=== PATIENT | male | born 1975 | race Caucasian/White ===

== ENCOUNTER 2023-07-08 15:42 | Emergency (ER) | payer MEDICAID ==
[~2023-07-08] VITALS: Ht 167.6 cm; Wt 82.0 kg
[2023-07-08 15:57] VITALS: O2SAT 98
[2023-07-08 16:34] LABS: EOSINOPHILS % 12.4 % (0.0-5.0); HEMATOCRIT. 41.7 % (42.0-52.0); HEMOGLOBIN. 14.6 g/dL (14.0-18.0); LYMPHOCYTES % 30.9 % (20.0-50.0); MEAN CORPUSCULAR HEMOGLOBIN 29.5 pg (28.0-32.0); MEAN CORPUSCULAR HGB CONC 35.1 g/dL (31.0-37.0); MEAN PLATELET VOLUME 8.7 fl (7.4-10.4); MONOCYTES % 10.2 % (2.0-8.0); NEUTROPHILS % 45.5 % (40.0-76.0); PLATELET 243 x1000/uL (130-400); RED BLOOD CELL COUNT 4.97 mill/uL (4.7-6.1); RED CELL DISTRIBUTION WIDTH 13.7 % (11.6-14.6); WHITE BLOOD COUNT 6.2 x1000/uL (4.5-11.0)
[2023-07-08 16:37] LABS: CHLORIDE 105 mEq/L (98-107); POTASSIUM 3.7 mEq/L (3.5-5.1); SODIUM 141 mEq/L (136-145)
[2023-07-08 16:38] LABS: CARBON DIOXIDE 30 mEq/L (21-32)
[2023-07-08 16:43] LABS: CREATININE 1.1 mg/dL (0.6-1.3); GLUCOSE 89 mg/dL (70-105); UREA NITROGEN BLOOD 20 mg/dL (9-23)
[2023-07-08 17:38] LABS: TROPONIN I HIGH SENSITIVITY 16 ng/L (3.0-53)
[2023-07-08] MEDS ORDERED: IBUP-2029 MT (18:02)
[2023-07-08] MEDS ORDERED: GUAI-450 MT (18:02)
[2023-07-08 18:40] VITALS: BP 135/85; PULSE 64; RESP 19; TEMP 98.3
== END 2023-07-08 18:45 | disposition home or self-care (01) ==
LOC: ER 15:42
DX: J06.9 Acute upper respiratory infection, unspecified (principal)
CPT/HCPCS: 36415; 71045; 80048; 83880; 84484; 85025; 93005; 99285